=== PATIENT | male | born 1970 | race Caucasian/White ===

== ENCOUNTER 2016-08-23 19:16 | Inpatient (IN) | payer OTHER ==
--- NOTE | ~2016-08-23 | CN ---
Consultation Report [facility] [address] [place]. [address] NAME: MIGUEL VIDAL : 74 STATUS : ADM Isabel PAT#: [id number] AGE: 46 ADM/REG DATE : 08/23/16 MR#: [id number] REPORT SERV DATE: 08/25/16 DICTATED BY: JORGE PRIETO DATE: 08/25/16 REPORT STATUS : Draft TRANSCRIBED BY: MODL DATE: 08/25/16 CONSULTATION DATE OF CONSULTATION: 08/24/2016 REASON FOR CONSULTATION: Possible complication of prosthetic aortic valve. BRIEF HISTORY: This is a 46-year-old, white male known to Dr. Prieto's practice having previously undergone an aortic valve replacement with an On-X mechanical valve as well as ascending aortic replacement with a background graft. He was noted at that time to have a bicuspid aortic valve. Postoperatively, he did have poor arterial flow in his left lower extremity and was noted to have clot, which were treated with thrombolytics. He was remained on Coumadin with a therapeutic INR. On Thursday, he began having acute onset of left arm numbness, tingling, and kind of a heavy feeling as well as severe headache, left facial numbness, and pain in his left lower extremity. He presented to [facility], at which time he underwent further evaluation with a CT of the head, which was negative. Troponins were also negative. There was concern that he may be having problems with his prosthetic mitral valve and his prosthetic aortic valve. Because of this, he was transferred to [facility] for further medical workup. We are asked to see him for further recommendations. PAST MEDICAL HISTORY: Includes bicuspid aortic valve with replacement with an on-X mechanical valve. 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 PAST SURGICAL HISTORY: Includes aortic valve and aortic root replacement as well as thrombolytic therapy to his left lower extremity. ALLERGIES: NONE. HOME MEDICATIONS: Include gabapentin 300 mg p.o. three times daily, lisinopril 10 mg p.o. daily, Lopressor 25 mg p.o. twice daily, Prilosec 20 mg p.o. daily at bedtime, Percocet 5/325 one tablet every eight hours as needed for pain, Crestor 20 mg p.o. daily, and Coumadin 10 mg p.o. daily. SOCIAL HISTORY: The patient denies any alcohol, tobacco, or illicit drug use. He works as a cnc maintenance technician and is and lives in [place]. FAMILY HISTORY: Significant for his mother having lung cancer and melanoma. Father's history is unknown. His siblings are healthy. REVIEW OF SYSTEMS: Significant for hypertension, diaphoresis, left arm heaviness, aching in his left leg, Consultation Report [address] [place]. [address] NAME: MIGUEL VIDAL : 74 STATUS : ADM Isabel PAT#: [id number] AGE: 46 ADM/REG DATE : 08/23/16 MR#: [id number] REPORT SERV DATE: 08/25/16 DICTATED BY: JORGE PRIETO DATE: 08/25/16 REPORT STATUS : Draft TRANSCRIBED BY: KAYLYN DATE: 08/25/16 facial numbness. Complete 12-point review of systems done, all other systems negative except the above-mentioned pertinent positives in history of present illness. PHYSICAL EXAMINATION: VITAL SIGNS: Afebrile. Heart rate normal sinus rhythm at 70, respirations 16, oxygen saturation 98%, blood pressure with systolic ranging between 130 to 150. GENERAL: Alert, oriented, in no acute distress, currently without any significant pain. HEAD, EARS, EYES, NOSE, AND THROAT: Normocephalic, atraumatic. Pupils equal, round and reactive to light. Ears, nose, and throat without drainage, lesions, or exudates noted. NECK: Supple. No lymphadenopathy, JVD, or bruits noted. Trachea midline with no obvious goiter. CHEST: With symmetrical bilateral movement. No chest wall deformities noted. There is a well-healed sternotomy scar. CARDIOVASCULAR: Revealed regular rate and rhythm. S1, S2. No gallop, murmur, or rub. There is a click from his mechanical mitral valve. RESPIRATORY: Lungs are clear to auscultation anteriorly bilaterally. No use of accessory muscles noted. GASTROINTESTINAL: Abdomen is soft, nontender, nondistended. Positive bowel sounds in all four quadrants. No hepatosplenomegaly. NEUROLOGIC: He is able to move all four extremities. He complains of heavy feeling in his left arm as well as facial numbness. Pupils are equal, round, and reactive to light, and he is alert and oriented x3. : The patient voids without difficulty, otherwise deferred. MUSCULOSKELETAL: Without obvious kyphosis or scoliosis noted. There are no obvious bony abnormalities. Normal range of motion in all four extremities. SKIN: Warm and dry with normal turgor. EXTREMITIES: Without clubbing, cyanosis, or edema. 3+ pulses bilaterally. PSYCH: Normal mood, affect, and pleasant. Answers all questions appropriately. HEMATOLOGIC/LYMPHATIC: Without any obvious petechiae or ecchymosis noted. There is no supraclavicular, cervical, or axillary lymphadenopathy noted. DATA: White blood count 17.2, hemoglobin 14.8, hematocrit 44.1, platelet 219. Sodium 136, potassium 4.6, BUN 13, creatinine 0.7. Troponin less than 0.02. INR 3.7, lipase 20. Urinalysis negative. CT of the brain showing no acute intracranial abnormalities. CT of the chest without evidence of dissection. There is dilatation of the pulmonary artery, which has increased in size from previous exam in 2011. Echocardiogram pending. PROBLEM LIST: 1. Left arm paresthesias. 2. Facial paresthesias. 3. Severe headache. 4. Supratherapeutic INR, on Coumadin. Consultation Report [address] [place]. [address] NAME: MIGUEL VIDAL : 74 STATUS : ADM Isabel PAT#: [id number] AGE: 46 ADM/REG DATE : 08/23/16 MR#: [id number] REPORT SERV DATE: 08/25/16 DICTATED BY: JORGE PRIETO DATE: 08/25/16 REPORT STATUS : Draft TRANSCRIBED BY: KAYLYN DATE: 08/25/16 5. Leukocytosis. 6. Hypertension. 7. Hyperlipidemia. 8. Gastroesophageal reflux disease. 9. History of mechanical aortic valve replacement as well as aortic root replacement with a Dacron graft. 10.History of left popliteal thrombosis with current claudication-type symptoms. IMPRESSION AND PLAN: A 46-year-old white male with history of mechanical mitral valve replacement with an on-X mitral valve as well as an aortic root replacement with Dacron graft. He was supratherapeutic on his INR upon presentation and is taking medications as prescribed. He did present with facial numbness, left arm heaviness and numbness, and left leg pain. After further examination, his left leg symptoms are classic for claudication. It is unclear why he is having left facial and arm problems, but so far the CT of the head has been negative for any type of CVA. CT scan of the chest shows no evidence of aortic dissection or any other acute problems. He does have dilatation of the pulmonary artery. I recommend that he have a carotid ultrasound as well as an echocardiogram to further look at the carotid arteries and aortic valve. He also may need an elective vascular surgery consultation for claudication. Long discussion had with the patient and his family and they are in agreement all these plans. DICTATED BY: FLORENCIO Davies/KAYLYN Jorge Pireto M.D. / [id number] CC: Noemi Suárez MD
--- NOTE | ~2016-08-23 | CN ---
Consultation Report [facility] [address] [place]. [address] NAME: MIGUEL VIDAL : 74 STATUS : ADM Isabel PAT#: [id number] AGE: 46 ADM/REG DATE : 08/23/16 MR#: [id number] REPORT SERV DATE: 08/24/16 DICTATED BY: DATE: REPORT STATUS : Draft TRANSCRIBED BY: MODL DATE: 08/24/16 NEUROLOGY CONSULTATION DATE OF CONSULTATION: 08/24/2016 REASON FOR CONSULT: Left-sided numbness, concern for stroke. HISTORY OF PRESENT ILLNESS: This is a 46-year-old male, who presented to [facility] secondary to acute onset of left-sided numbness involving the left face as well as the left upper extremity with the patient's symptoms started on 08/22/2016. The patient today reports improving symptoms, but still was complaining of some subjective numbness. The patient denies any weakness. Denies any dysarthria and language difficulties. Reports transient diplopia at work, but otherwise denies any persistent diplopia or vision difficulties. The patient at baseline does have some numbness in the left lower extremity, worse with standing, especially with prolonged standing about one to two hours, better with sitting down. The patient otherwise denies any previous history of facial or arm numbness. The patient does have headache, reports the headache is in the bilateral temporal area, described the pain as throbbing type of sensation, reports of photophobia, but denies phonophobia and denies nausea and vomiting. The patient reports at times, the patient does have a visual distortion with the headache, reports the headache has been recent onset about once every month, as well as the patient reports a headache at times that can last up to several days. Otherwise, no recent illness was noted. No recent fever, chills, nausea, vomiting, chest pain, or shortness of breath was otherwise noted. No other changes in medication were noted. The patient does have increase of Coumadin secondary to previously noted to have a subtherapeutic INR a few days ago. REVIEW OF SYSTEMS: Negative except for those mentioned in the HPI with the patient's past medical history consists of the aortic valve replacement with mechanical valve as well as aortic root replacement. The patient does have a history of left popliteal thrombosis in the past as well as history of hypertension, hyperlipidemia. The patient is on chronic anticoagulation with Coumadin. Recent adjustment of Coumadin dosage is secondary to subtherapeutic INR. ALLERGIES: THE PATIENT WAS NOTED TO HAVE NO KNOWN DRUG ALLERGIES. HOME MEDICATIONS: Consist of gabapentin, lisinopril, Lopressor, Prilosec, Percocet, Crestor, and Coumadin. FAMILY HISTORY: Significant for lung cancer and melanoma. SOCIAL HISTORY: Denies tobacco, alcohol, or recreational drug usage. PHYSICAL EXAMINATION: VITAL SIGNS: At the time of evaluation, patient was noted to have overnight vital signs, T- Consultation Report [place] [id number] [facility] [place]. [address] NAME: MIGUEL VIDAL : 74 STATUS : ADM Isabel PAT#: [id number] AGE: 46 ADM/REG DATE : 08/23/16 MR#: [id number] REPORT SERV DATE: 08/24/16 DICTATED BY: DATE: REPORT STATUS : Draft TRANSCRIBED BY: MODL DATE: 08/24/16 max of 98.3, heart rates of 56 to 77, respirations of 14 to 20, and blood pressure of 106 to 156 over 60 to 88. GENERAL: Patient is well developed, well nourished, in no acute distress. CARDIOVASCULAR: Regular rate and rhythm. No carotid bruits were otherwise noticed. Mechanical valve sound was auscultated at the time of evaluation. PULMONARY: Clear to auscultation bilaterally. NEUROLOGICAL EXAMINATION: Generally, the patient is alert, oriented to person, place, year, and month. Follows simple and two-step commands. No dysarthria. No aphasia. Intact registration and recall. Cranial nerves 2 through 12, pupils equal, round, and reactive to light. Extraocular eye movement was noted to be intact with intact peripheral vision. No visual neglect was otherwise appreciated. Symmetrical facial expression and sensation. Midline tongue. Normal palatal movement. Normal sensation. Normal hearing. Bilateral upper and lower extremities strength was 5/5 with the patient noted to have decreased range of movement in the right upper extremity and shoulder secondary to rotator cuff injury, which both the patient and reports to be chronic. No pronator drift was otherwise seen. Symmetrical sensation in the bilateral upper and lower extremities. A 5/5 bilateral lower extremities strength at the time of evaluation. Deep tendon reflex was 2+ throughout. Downgoing toe on bilateral plantar reflexes. Normal [id number] examination without ataxia with normal gait and station. LABORATORY STUDIES: Demonstrated white blood cell count of 11.5, hemoglobin of 14.0, hematocrit of 41.5, and platelet count of 203. INR of 3.4 today. Chemistry panel: Sodium 140, potassium 4.0, chloride 107, bicarb 25, BUN of 13, creatinine 0.95. Glucose of 141, calcium of 8.4. Serum cholesterol of 170, HDL of 55, LDL of 83, triglyceride of 161, folate of 16.3, vitamin B12 of 577. TSH of 0.32. Free T4 1.08. Hemoglobin A1c of 5.3. CT scan of the brain without contrast demonstrated no significant abnormalities. IMPRESSION: 1. Left-sided numbness with symptom improving. NIH stroke scale at time of evaluation is 0. The patient denies similar events in the past. We will continue Coumadin for now. We will increase Lipitor to 80 mg p.o. at bedtime. We will also obtain MRI of the brain without contrast for evaluation. Echocardiogram and carotid Doppler studies are otherwise pending. 2. Headache, worse with lying down. We will start the patient on a trial of Depakote as well as Topamax. May consider lumbar puncture as well as sed rate and CRP for evaluation if no improvement of the headache was noted. 3. Left lower extremity numbness, intermittent and chronic. If arterial evaluation is negative, we will consider lumbar spine imaging. RECOMMENDATIONS: 1. MRI of the brain without contrast. 2. Depakote 125 mg IV b.i.d. 3. Topamax 25 mg p.o. at bedtime. Consultation Report [address] [place]. [address] NAME: MIGUEL VIDAL : 74 STATUS : ADM Isabel PAT#: [id number] AGE: 46 ADM/REG DATE : 08/23/16 MR#: [id number] REPORT SERV DATE: 08/24/16 DICTATED BY: DATE: REPORT STATUS : Draft TRANSCRIBED BY: MODSj DATE: 08/24/16 4. Increase the Lipitor to 80 mg p.o. at bedtime. 5. Continue Coumadin. [facility]/KAYLYN Kai You MD / [id number] CC: Kathryn Baxter M.D.
--- NOTE | ~2016-08-23 | DS ---
Discharge Summary [place] [id number] [place]. [address] NAME: MIGUEL VIDAL : 74 STATUS : DIS IN PAT#: [id number] AGE: 46 ADM/REG DATE : 08/23/16 MR#: [id number] REPORT SERV DATE: 08/29/16 DICTATED BY: ALLI CRESPO DATE: 08/28/16 REPORT STATUS : Draft TRANSCRIBED BY: MODL DATE: 08/28/16 ADMISSION DATE: 08/23/2016 DISCHARGE DATE: 08/28/2016 DISCHARGE DIAGNOSES: Include: 1. Left-sided arm and facial numbness and paresthesias. 2. Headache. 3. Cerebral microbleeding. 4. L4-L5 disc herniation in the setting of chronic back pain. 5. History of mechanical aortic valve, on chronic Coumadin therapy, with admission supratherapeutic INR. 6. Pneumonia, completed antibiotic therapy, that was present on admission. DISCHARGE MEDICATIONS: Lisinopril 10 mg daily, metoprolol 25 mg twice, Prilosec 20 mg daily, Coumadin 7.5 mg daily, gabapentin 300 mg three times a day, Percocet 5/325 one tablet every six hours p.r.n. for pain, Topamax 50 mg twice, and Crestor 20 mg daily. HISTORY OF PRESENT ILLNESS: This is a very pleasant 46-year-old white male who presented with headache and left arm numbness and tingling. Please see initial H and P of Dr. Gumaro García. The patient was a transfer from [facility] on direct admission and admitted to Hospitalist Service for further evaluation and treatment. CONSULTS DURING THIS ADMISSION: Include, 1. Neurology, Dr. Geraldine You and Dr. Israel Duarte. 2. Thoracic Surgery, Dr. Gumaro Prieto. 3. Pulmonology, Dr. Mcmullen. PROCEDURES AND IMAGING DURING THIS ADMISSION: Include an initial CTA of the chest that showed no evidence of pulmonary embolus, some CT evidence of pulmonary arterial hypertension, mild cardiomegaly, scattered small poorly defined reticulonodular infiltrates in the right upper lobe and to a lesser extent in the superior segment of the right lower lobe. CT of the brain that was negative and within normal limits. A carotid ultrasound that showed category 1 less than 50% stenosis. Vascular ultrasound of the lower extremity showing no evidence for any arterial stenosis or occlusion and no evidence for thrombus. MRI of the brain that showed slight evidence for microbleeding in the hemispheres bilaterally. Presence of small multiple microbleeds that raise concern for underlying amyloid angiopathy. MRI of the lumbar spine showing a moderate-sized L4-L5 herniation, but no canal stenosis, and no direct nerve compression identified. Followup MRI of the brain on the day of discharge, 08/28/2016, after discussion with neurologist, Dr. Israel Duarte, no significant change from prior MRI of the brain. HOSPITAL COURSE: The patient was initially seen by hospitalist, Dr. Kathryn Baxter, and had the above-described CTA of the chest with a consult was placed to Thoracic Surgery given his history of prior aortic valve replacement and his pulmonary hypertension, and the findings of the infiltrative process, a consult was placed to Pulmonology as well, who started the patient on empiric antibiotic therapy with plans to follow up with this patient Discharge Summary [address] [place]. [address] NAME: MIGUEL VIDAL : 74 STATUS : DIS IN PAT#: [id number] AGE: 46 ADM/REG DATE : 08/23/16 MR#: [id number] REPORT SERV DATE: 08/29/16 DICTATED BY: ALLI CRESPO DATE: 08/28/16 REPORT STATUS : Draft TRANSCRIBED BY: KAYLYN DATE: 08/28/16 in a month to repeat a CT scan of the chest. The patient's INR was supratherapeutic upon admission at 3.5 and this began to trend downward as the goal rate for his particular aortic valve was 1.5 to 2.0 for INR. Neurology saw the patient with his left-sided paresthesias and numbness and ordered the MRI of the brain. I did give the patient Depakote and Topamax. He continued to have some rather persistent and severe headaches during this admission, which necessitated some IV narcotic pain control, but as his INR trended downward with the use of pain medicine and Topamax and Depakote, this headache seemed to improve somewhat. He has a chronic left lower extremity pain and weakness and chronic back pain, and given the findings of the L4-L5 herniation, I have recommended he have an appointment with an Ortho Spine for followup in reference to this. His INR trended downward to 2.0 and I will be resuming his Coumadin at 7.5 mg with instructions to recheck his INR in the morning of 08/29/2016 with his primary care. Further discussion with the patient revealed that he had actually struck his head quite hard some two weeks ago at his workplace where he saw "stars" and had to be helped up, so given the findings of supratherapeutic INR, this trauma is likely a culprit for the small microbleeds, but overall the patient has improved both clinically and symptomatically and it was felt safe for discharge home on 08/28/2016 with the above medication regimen. To follow up with his primary care in a.m., to have an appointment with Ortho Spine, Dr. Mcgee, and also an outpatient followup with Dr. Mcmullen in one month for CT scan of the chest. I have discussed this at length with the patient and patient's at bedside. Questions were answered extensively. He is in agreement with the plan and both followups and medications and wishes to be discharged to home. Please note that greater than 30 minutes was spent on this discharge for medication teaching, followup planning, and further disposition. CSC/MODL Alli Crespo NP / [id number] CC: Noemi Chi JOSEPH
--- NOTE | ~2016-08-23 | CN ---
Consultation Report [facility] [address] [place]. [address] NAME: MIGUEL VIDAL : 74 STATUS : ADM Isabel PAT#: [id number] AGE: 46 ADM/REG DATE : 08/23/16 MR#: [id number] REPORT SERV DATE: 08/26/16 DICTATED BY: CRYSTAL MCMULLEN DATE: 08/25/16 REPORT STATUS : Draft TRANSCRIBED BY: MODL DATE: 08/25/16 PULMONARY CONSULT DATE OF CONSULTATION: 08/25/2016 REASON FOR CONSULTATION: Pneumonia and CT scan abnormality. CHIEF COMPLAINT: The patient complains of a headache. HISTORY OF PRESENT ILLNESS: Mr. Vidal is a 46-year-old gentleman with a past medical history of a bicuspid aortic valve, status post mechanical aortic valve replacement and aortic root replacement in 2007 along with a left popliteal thrombosis, and is currently on anticoagulation. He has a mechanical valve. The patient states that he began having severe headache over the last several days. No fevers, but did have chills prior to admission for around 24 hours. He has some reflux. Also, he was concerned in that he has left hand weakness along with numbness. He was also noted to have hypertension, which is new for him and now, the patient states that he is being started on antihypertensives. Overall, he feels better. He still has the headache, however. In his evaluation, he was found to have a spot on his lung. PAST MEDICAL HISTORY: Heart valve replacement due to bicuspid aortic valve, left popliteal thrombosis, hyperlipidemia, and hypertension. HOME MEDICATIONS: Home medication list reviewed. No significant medications from a pulmonary standpoint. ALLERGIES: NO KNOWN DRUG ALLERGIES. SOCIAL HISTORY: The patient is . No tobacco or illicit drug use. 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 FAMILY HISTORY: Mother had lung cancer at the age of 62, but otherwise clear. REVIEW OF SYSTEMS: All pertinent reviews of systems reviewed and is otherwise negative. PHYSICAL EXAMINATION: VITAL SIGNS: Vital signs reviewed and are essentially normal with just some hypertension. HEENT: No JVD. GENERAL: The patient is alert and oriented, in no acute distress. PULMONARY: Lungs are clear to auscultation. No wheezing. CARDIAC: Regular rate, mechanical heart valve is noted. ABDOMEN: Soft, nontender, nondistended. Consultation Report [place] [id number] [place]. [address] NAME: MIGUEL VIDAL : 74 STATUS : ADM Isabel PAT#: [id number] AGE: 46 ADM/REG DATE : 08/23/16 MR#: [id number] REPORT SERV DATE: 08/26/16 DICTATED BY: CRYSTAL MCMULLEN DATE: 08/25/16 REPORT STATUS : Draft TRANSCRIBED BY: MODL DATE: 08/25/16 EXTREMITIES: No cyanosis. Is able to move all extremities with no difficulty. LABORATORY EXAMINATION: No leukocytosis. INR is 2.8. Good kidney function and negative procalcitonin. IMAGING DATA: CT scan done two days ago shows what looks to be a small 9-mm infiltrate in the right upper lobe, which looks like a small pneumonia. ASSESSMENT AND PLAN: Mr. Vidal is a 46-year-old gentleman with a past medical history noted above, who presents with the above-named complaints and a CT scan, which shows a small area of possible pneumonia. We will go ahead and prescribe the patient a short course of Levaquin and have the patient come back to the clinic for a CT scan to follow up and ensure that the abnormality has resolved in light of his mother having lung cancer. This does not look to be a cancerous lesion; however, due to the family history, we will go forward with that more aggressive approach in having a followup CT scan. Thank you very much for this consultation. We will follow the patient up in one month in clinic with a repeat CT scan. [facility]/KAYLYN Crystal Mcmullen MD / [id number] CC: Noemi Suárez
--- NOTE | ~2016-08-23 | HP ---
History And Physical [place] [id number] [facility] [place]. [address] NAME: MIGUEL VIDAL : 74 STATUS : ADM Isabel PAT#: [id number] AGE: 46 ADM/REG DATE : 08/23/16 MR#: [id number] REPORT SERV DATE: 08/23/16 DICTATED BY: JORGE BOLES DATE: 08/23/16 REPORT STATUS : Draft TRANSCRIBED BY: MODL DATE: 08/23/16 DATE OF ADMISSION: 08/23/2016 POINT OF ENTRY: Transfer from [facility] Emergency Department. PRIMARY CARDIAC SURGEON: Dr. Prieto. CHIEF COMPLAINT: Headache and left arm numbness and tingling. HISTORY OF PRESENT ILLNESS: Mr. Vidal is a 46-year-old gentleman with history of bicuspid aortic valve with status post mechanical aortic valve replacement and aortic root replacement in 2007, who presented to [facility] earlier today with the acute onset of left arm numbness, tingling, and heaviness as well as severe headache and left facial numbness and tingling. The patient states his usual state of health until last night when he did not sleep well as he was having some diaphoresis and belching, which he felt was possibly due to gastroesophageal reflux disease. This morning he started to notice left arm heaviness, numbness, and tingling as well as some left facial numbness and tingling and a severe headache. The patient states that he has had troubles with left facial numbness and tingling for a few months now. However, the headache and left arm symptoms were new. He also states he felt some fluttering in his chest earlier today, but denies any documented fevers, chest pain or chest pressure, or shortness of breath. He also denies any nausea, vomiting, constipation, troubles with bleeding such as hematuria or hematemesis, melena or hematochezia. He states he has had some chronic diarrhea now for few months. REVIEW OF SYSTEMS: A comprehensive review of systems otherwise negative unless listed in the history of present illness. Initial evaluation at [facility] is notable for stable vital signs. Labs notable for a white count of 17,200. Chest x-ray and CT scan of the brain were negative. INR was 3.7. Remainder of his labs are otherwise unremarkable. The patient was subsequently transferred to [facility] for high level of care. PREVIOUS MEDICAL HISTORY: 1. Bicuspid aortic valve replacement, status post mechanical aortic valve replacement and aortic root replacement. 2. Left popliteal thrombosis, status post thrombolytic therapy. 3. Hypertension. 4. Hyperlipidemia. SURGICAL HISTORY: 1. Mechanical aortic valve replacement. 2. Aortic root replacement. 3. Left lower extremity thrombolytic therapy. History And Physical [address] [address] NAME: MIGUEL VIDAL : 74 STATUS : ADM Isabel PAT#: [id number] AGE: 46 ADM/REG DATE : 08/23/16 MR#: [id number] REPORT SERV DATE: 08/23/16 DICTATED BY: JORGE BOLES DATE: 08/23/16 REPORT STATUS : Draft TRANSCRIBED BY: KAYLYN DATE: 08/23/16 ALLERGIES: NO KNOWN DRUG ALLERGIES. HOME MEDICATIONS: 1. Gabapentin 300 mg t.i.d. 2. Lisinopril 10 mg at bedtime. 3. Lopressor 25 mg b.i.d. 4. Prilosec 20 mg at bedtime. 5. Percocet 5/325 one tablet q.8 hours. 6. Crestor 20 mg at bedtime. 7. Coumadin 10 mg at bedtime. SOCIAL HISTORY: Denies any tobacco, alcohol, or illicits. He is . Works as a engineer operations and maintenance. FAMILY MEDICAL HISTORY: Mother with history of lung cancer and melanoma, father's history unknown. Siblings are otherwise healthy. LABS AND IMAGING: All obtained from transfer records from [facility]. 1. White count is 17.2, hemoglobin 14.8, hematocrit 44.1, platelet count is 219. 2. Sodium is 136, potassium 4.6, chloride 98, carbon dioxide 24, BUN 13, creatinine 0.7, glucose is 124, calcium is 9.2, magnesium 1.9, protein 7.6, albumin 4.6, bilirubin 0.8. ALT is 33, AST 41, alkaline phosphatase is 95. 3. Troponin less than 0.02. 4. INR 3.7. 5. Lipase is 20. 6. Urinalysis: Specific gravity of 1.019, no evidence of any infection .. 7. Her chest x-ray per Radiology report shows no acute cardiopulmonary abnormality. 8. CT scan of the brain per Radiology report shows no acute intracranial abnormalities. His EKG per my review shows normal sinus rhythm. Incomplete right bundle-branch block with no evidence of any acute ischemia or infarction. PHYSICAL EXAMINATION: VITAL SIGNS: Temperature is 98.3 degrees Fahrenheit, pulse is 77, respirations 20, saturating 100% on 2 L of cannula, blood pressure 156/88. GENERAL: The patient is awake, alert, in no acute distress. Resting comfortably. He is a well-developed, well-nourished, male. Family is at bedside. HEENT: Atraumatic and normocephalic. Moist mucous membranes. Pupils are equal, round, reactive to light and accommodation. Extraocular eye movements intact. No scleral icterus. NECK: No jugular venous distention. No carotid bruits. CARDIAC: Regular rate and rhythm. No murmurs or gallops. Normal S1, S2. Coleman mechanical heart sounds. LUNGS: Clear to auscultation bilaterally. No wheezes, rhonchi, or crackles. ABDOMEN: Soft, nontender, nondistended. Good bowel sounds. No rebound, guarding, or rigidity. EXTREMITIES: Warm and perfused. No cyanosis, clubbing, or edema. SKIN: Warm and dry. History And Physical [address] [address] NAME: MIGUEL VIDAL : 74 STATUS : ADM Isabel PAT#: [id number] AGE: 46 ADM/REG DATE : 08/23/16 MR#: [id number] REPORT SERV DATE: 08/23/16 DICTATED BY: JORGE BOLES DATE: 08/23/16 REPORT STATUS : Draft TRANSCRIBED BY: MODjS DATE: 08/23/16 PSYCH: Affect appropriate. NEURO: Alert, oriented x3. Cranial nerves 2 through 12 grossly intact. Speech is normal. Gait not assessed. ASSESSMENT AND PLAN: Mr. Vidal is a 46-year-old gentleman who presents with one-day history of left arm paresthesias as well as facial paresthesias and headache, concerning for possible cerebrovascular accident versus possible complication from his known history of aortic valve and aortic root replacement. PROBLEM LIST: 1. Left arm paresthesias. 2. Facial paresthesias. 3. Severe headache. 4. Concern for possible cerebrovascular accident. 5. History of aortic valve and aortic root replacement. 6. Supratherapeutic INR. 7. Leukocytosis. 8. Hypertension. 9. Hyperlipidemia. PLAN: 1. Left arm and facial paresthesias. Given the patient's symptoms, obviously there was some concern possibly for cerebrovascular accident versus TIA versus possible complication from his previous cardiac surgical history. CT scan of brain was unremarkable. Unfortunately, he is unable to get an MRI. We will schedule him for repeat CT scan of the brain tomorrow as well as consult Neurology. We will also check carotid arterial Dopplers as well as echocardiogram. Given his history of previous cardiac surgery history, we will obtain a stat CTA of the chest to evaluate the aortic valve as well as aortic root replacement, and we will consult the patient's primary cardiothoracic surgeon, Dr. Prieto to see the patient in the morning. We will continue the patient's home statin. We will place him on aspirin as well as continue the patient's Coumadin. 2. Headache. CT scan of the brain was unremarkable for any kind of bleed. We will place the patient on some low-dose narcotics as well as Toradol for pain control. 3. History of aortic valve and aortic root replacement. Followup CTA of the chest as well as Cardiac Surgery consultation echocardiogram. 4. Supratherapeutic INR. Pharmacy to manage the patient's Coumadin. 5. Leukocytosis, unclear etiology at this time. His urinalysis, flu swab, and chest x-ray were all unremarkable at [facility]. He is afebrile here with stable vital signs. We will repeat a CBC in the morning. Continue to monitor. 6. DVT prophylaxis. The patient is therapeutically anticoagulated. CODE STATUS: The patient is a full code. JCB/MODL History And Physical [address] [address] NAME: MIGUEL VIDAL : 74 STATUS : ADM Isabel PAT#: [id number] AGE: 46 ADM/REG DATE : 08/23/16 MR#: [id number] REPORT SERV DATE: 08/23/16 DICTATED BY: JORGE BOLES DATE: 08/23/16 REPORT STATUS : Draft TRANSCRIBED BY: KAYLYN DATE: 08/23/16 Jorge Boles MD / [id number] CC: Noemi Suárez M.D.
[2016-08-23] MEDS ORDERED: NEUR300 PO (19:54)
[2016-08-23] MEDS ORDERED: C5 PO (19:54)
[2016-08-23] MEDS ORDERED: PRILO PO (19:55)
[2016-08-23] MEDS ORDERED: PRIN10 PO (19:55)
[2016-08-23] MEDS ORDERED: LOP25 PO (19:55)
[2016-08-23] MEDS ORDERED: PCET PO (19:55)
[2016-08-23] MEDS ORDERED: CRESTOR20 MG PO (19:56)
[2016-08-23 21:43] LABS: CPK 179 U/L (0-200); GFR AFRICAN AMERICAN 126 ML/MIN (>=60); GFR NON AFRICAN AMERICAN 109 ML/MIN (>=60); TROPONIN I <0.02 NG/ML (<0.05)
[2016-08-23 21:51] LABS: CK-MB 0.8 NG/ML
[2016-08-23 22:20] LABS: BASOPHILS 0.1 %; BASOPHILS ABSOLUTE 0.01 10/3/uL (0.0-0.16); EOSINOPHILS 2.9 %; EOSINOPHILS ABSOLUTE 0.33 10/3/uL (0.0-0.53); IMMATURE GRANULOCYTES 0.3 %; IMMATURE GRANULOCYTES ABSOLUTE 0.03 10/3/uL (0.0-0.11); LYMPHOCYTES 15.1 %; LYMPHOCYTES ABSOLUTE 1.73 10/3/uL (0.67-4.30); MEAN CORPUS HGB CONC 33.7 g/dL (32.0-36.0); MEAN CORPUSCULAR HEMOGLOB 29.6 pg (26.0-34.0); MEAN CORPUSCULAR VOLUME 87.7 fL (80-100); MEAN PLATELET VOLUME 10.2 fL (9.2-13.0); MONOCYTES 9.2 %; MONOCYTES ABSOLUTE 1.06 10/3/uL (0.21-1.20); NEUTROPHILS 72.4 %; RBC DISTRIBUTION WIDTH 13.2 % (12.0-16.0); WHITE BLOOD CELLS 11.5 10/3/uL (4.5-10.5)
[2016-08-23 22:22] LABS: HEMATOCRIT 41.5 % (40.0-51.0); MANUAL DIFF NO %; PLATELET COUNT 203 10/3/uL (150-400); RED CELL COUNT 4.73 10/6/uL (4.7-6.1)
[2016-08-23 22:28] LABS: INTERNATIONAL NORMAL RATI 3.5 UNITS (-); PARTIAL THROMBO TIME 54.9 SEC (22.5-37.2)
[2016-08-23 22:29] LABS: PROTIME (NOT ORD) 34.8 SEC (12.0-14.5)
[2016-08-23 22:59] LABS: CHOL/HDL RATIO(NOT ORDER) 3.1 (0-5); FREE T4 1.08 NG/DL (0.76-1.46); ULTRASENSITIVE TSH 0.323 MCIU/ML (0.358-3.740)
[2016-08-23 23:00] LABS: FOLATE 16.3 NG/ML (>5.2)
[2016-08-24 06:00] LABS: INTERNATIONAL NORMAL RATI 3.4 UNITS (-)
[2016-08-24 06:12] LABS: TROPONIN I <0.02 NG/ML (<0.05)
[2016-08-24 06:18] LABS: CK-MB 0.6 NG/ML; CPK 134 U/L (0-200)
[2016-08-24 09:50] LABS: BUN (BLOOD UREA NITROGEN) 13 MG/DL (6-23); C-REACTIVE PROTEIN 39.3 MG/L (<8.0); CALCIUM, SERUM 8.4 MG/DL (8.5-10.4); CHLORIDE, SERUM 107 MMOL/L (96-112); CO2 (CARBON DIOXIDE) 25 MMOL/L (24-34); CREATININE 0.95 MG/DL (0.70-1.30); GFR AFRICAN AMERICAN 112 ML/MIN (>=60); GFR NON AFRICAN AMERICAN 97 ML/MIN (>=60); GLUCOSE, SERUM 141 MG/DL (60-99)
[2016-08-24 09:52] LABS: SODIUM, SERUM 140 MMOL/L (135-148)
[2016-08-24 11:17] LABS: PROCALCITONIN <0.05 ng/mL (<0.5)
[2016-08-24 11:21] LABS: ASCORBIC ACID (UR NOT ORDER) NEG (NEG); BILIRUBIN, URINE NEGATIVE (NEG); KETONE, URINE NEGATIVE (NEG); LEUKOCYTE ESTERASE(NOT OR NEG (NEG); WBC (NOT ORDERED) (RFLEX) < 1 (0-5)
[2016-08-24 13:31] LABS: CK-MB 0.5 NG/ML; CPK 137 U/L (0-200); TROPONIN I <0.02 NG/ML (<0.05)
[2016-08-25 06:56] LABS: BASOPHILS 0.1 %; BASOPHILS ABSOLUTE 0.01 10/3/uL (0.0-0.16); EOSINOPHILS 5.4 %; EOSINOPHILS ABSOLUTE 0.41 10/3/uL (0.0-0.53); HEMATOCRIT 41.2 % (40.0-51.0); HEMOGLOBIN 13.5 g/dL (13.6-17.8); IMMATURE GRANULOCYTES 0.7 %; IMMATURE GRANULOCYTES ABSOLUTE 0.05 10/3/uL (0.0-0.11); LYMPHOCYTES 20.1 %; LYMPHOCYTES ABSOLUTE 1.53 10/3/uL (0.67-4.30); MEAN CORPUS HGB CONC 32.8 g/dL (32.0-36.0); MEAN CORPUSCULAR HEMOGLOB 29.7 pg (26.0-34.0); MEAN PLATELET VOLUME 10.2 fL (9.2-13.0); MONOCYTES 12.1 %; MONOCYTES ABSOLUTE 0.92 10/3/uL (0.21-1.20); NEUTROPHILS 61.6 %; NEUTROPHILS ABSOLUTE 4.71 10/3/uL (2.02-8.40); PLATELET COUNT 204 10/3/uL (150-400); RBC DISTRIBUTION WIDTH 13.2 % (12.0-16.0); RED CELL COUNT 4.55 10/6/uL (4.7-6.1); WHITE BLOOD CELLS 7.6 10/3/uL (4.5-10.5)
[2016-08-25 06:59] LABS: MEAN CORPUSCULAR VOLUME 90.5 fL (80-100)
[2016-08-25 07:00] LABS: MANUAL DIFF NO %
[2016-08-25 07:03] LABS: INTERNATIONAL NORMAL RATI 2.8 UNITS (-)
[2016-08-25 07:08] LABS: CALCIUM, SERUM 8.9 MG/DL (8.5-10.4); CHLORIDE, SERUM 107 MMOL/L (96-112); CREATININE 0.98 MG/DL (0.70-1.30); GFR AFRICAN AMERICAN 108 ML/MIN (>=60); GFR NON AFRICAN AMERICAN 93 ML/MIN (>=60); GLUCOSE, SERUM 114 MG/DL (60-99); POTASSIUM, SERUM 4.3 MMOL/L (3.5-5.3); SODIUM, SERUM 143 MMOL/L (135-148)
[2016-08-25 07:09] LABS: BUN (BLOOD UREA NITROGEN) 17 MG/DL (6-23); CO2 (CARBON DIOXIDE) 30 MMOL/L (24-34)
[2016-08-26 04:37] LABS: INTERNATIONAL NORMAL RATI 2.8 UNITS (-); PROTIME (NOT ORD) 29.2 SEC (12.0-14.5)
[2016-08-26 04:44] LABS: BASOPHILS 0.2 %; BASOPHILS ABSOLUTE 0.02 10/3/uL (0.0-0.16); EOSINOPHILS 5.7 %; EOSINOPHILS ABSOLUTE 0.46 10/3/uL (0.0-0.53); HEMATOCRIT 40.9 % (40.0-51.0); HEMOGLOBIN 13.4 g/dL (13.6-17.8); IMMATURE GRANULOCYTES 0.9 %; IMMATURE GRANULOCYTES ABSOLUTE 0.07 10/3/uL (0.0-0.11); LYMPHOCYTES 21.5 %; LYMPHOCYTES ABSOLUTE 1.74 10/3/uL (0.67-4.30); MEAN CORPUS HGB CONC 32.8 g/dL (32.0-36.0); MEAN CORPUSCULAR HEMOGLOB 29.3 pg (26.0-34.0); MEAN CORPUSCULAR VOLUME 89.3 fL (80-100); MEAN PLATELET VOLUME 10.2 fL (9.2-13.0); MONOCYTES 12.5 %; MONOCYTES ABSOLUTE 1.01 10/3/uL (0.21-1.20); NEUTROPHILS 59.2 %; NEUTROPHILS ABSOLUTE 4.78 10/3/uL (2.02-8.40); PLATELET COUNT 221 10/3/uL (150-400); RBC DISTRIBUTION WIDTH 13.1 % (12.0-16.0); RED CELL COUNT 4.58 10/6/uL (4.7-6.1); WHITE BLOOD CELLS 8.1 10/3/uL (4.5-10.5)
[2016-08-26 04:50] LABS: MANUAL DIFF NO %
[2016-08-26 04:52] LABS: BUN (BLOOD UREA NITROGEN) 17 MG/DL (6-23); CALCIUM, SERUM 8.9 MG/DL (8.5-10.4); CHLORIDE, SERUM 104 MMOL/L (96-112); CO2 (CARBON DIOXIDE) 27 MMOL/L (24-34); CREATININE 0.92 MG/DL (0.70-1.30); GFR AFRICAN AMERICAN 117 ML/MIN (>=60); GFR NON AFRICAN AMERICAN 101 ML/MIN (>=60); GLUCOSE, SERUM 106 MG/DL (60-99); POTASSIUM, SERUM 4.3 MMOL/L (3.5-5.3); SODIUM, SERUM 140 MMOL/L (135-148)
[2016-08-27 06:18] LABS: INTERNATIONAL NORMAL RATI 2.7 UNITS (-); PROTIME (NOT ORD) 28.7 SEC (12.0-14.5)
[2016-08-28 04:35] LABS: PROTIME (NOT ORD) 22.3 SEC (12.0-14.5)
[2016-08-28] MEDS ORDERED: TOPAMAX50 MG PO (18:47)
[2016-08-28] MEDS ORDERED: COUMADIN7.5 MG PO (18:47)
[2016-12-07] MEDS ORDERED: ZANTAC 150 PO (19:45)
[2016-12-09] MEDS ORDERED: LOVENOX80 SC (16:06)
== END 2016-08-28 20:46 | disposition home or self-care (01) | DRG 64 ==
LOC: 5NO 19:16
PROVIDERS: Hospitalist; Internal Medicine; Nurse Practitioner Family; Plastic Surgery
DX: I61.4 Nontraumatic intracerebral hemorrhage in cerebellum (principal); J18.9 Pneumonia, unspecified organism; G43.909 Migraine, unspecified, not intractable, without status migrainosus; Z95.2 Presence of prosthetic heart valve; R20.0 Anesthesia of skin; I10 Essential (primary) hypertension; E78.5 Hyperlipidemia, unspecified; H53.2 Diplopia; K21.9 Gastro-esophageal reflux disease without esophagitis; M51.26 Other intervertebral disc displacement, lumbar region; G47.33 Obstructive sleep apnea (adult) (pediatric); Z79.02 Long term (current) use of antithrombotics/antiplatelets
CPT/HCPCS: 70450; 70551; 71020; 71275; 72148; 80048; 80061; 81001; 82550; 82553; 82565; 82607; 82746; 83036; 84145; 84439; 84443; 84484; 85025; 85610; 85652; 85730; 86140; 87040; 93005; 93306; 93880; 93925; A9270-GY; J0780; J1170; J1885; Q9967